=== PATIENT | female | born 1960 | race Caucasian/White ===

== ENCOUNTER 2016-11-05 08:00 | Outpatient (CLI) | payer MEDICARE, MEDICAID | END 2016-11-05 08:01 | disposition home or self-care (01) | DX: Z78.9 Other specified health status (principal); Z79.899 Other long term (current) drug therapy ==

== ENCOUNTER 2016-12-24 14:50 | Outpatient (CLI) | payer MEDICARE, MEDICAID ==
--- NOTE | 2016-12-24 16:41 | XRAY Report ---
TWO VIEW RIGHT CALCANEUS: 12/24/2016 CLINICAL INDICATION: Pain. FINDINGS: Frontal and lateral views of the right calcaneus demonstrate plantar and posterior calcane al spurring. There is no evidence of fracture. The joint spaces are unremarkable. IMPRESSION: MILD DEGENERATIVE CHANGES. NO EVIDENCE OF CALCANEAL FRACTURE. JOB #: [id number] EXT JOB #:[id number]
--- NOTE | 2016-12-24 16:58 | XRAY Report ---
THREE-VIEW RIGHT FOOT: 12/24/2016 CLINICAL INDICATION: Pain. FINDINGS: AP, lateral, oblique views of the right foot demonstrate mild osteoarthritic changes of th e first metatarsophalangeal joint and interphalangeal joints. There is no evidence of acute fracture or dislocation. No radiopaque foreign body is seen in the soft tissues. Small plantar and posterio r calcaneal spurring is noted. IMPRESSION: DEGENERATIVE CHANGES. NO EVIDENCE OF FRACTURE. JOB #: [id number] EXT JOB #:[id number]
== END 2016-12-24 14:51 | disposition home or self-care (01) ==
LOC: DI.N 14:50
PROVIDERS: ATTEND Nurse Practitioner Gerontology
DX: M19.071 Primary osteoarthritis, right ankle and foot (principal)

== ENCOUNTER 2017-01-01 16:36 | Outpatient (CLI) | payer MEDICARE, MEDICAID ==
--- NOTE | 2017-01-02 10:06 | MRI Report ---
EXAM: RIGHT ANKLE/HINDFOOT MRI WITHOUT CONTRAST EXAM DATE: 01/01/2017 05:43 PM. CLINICAL HISTORY: [place] a pop in the right heel 10 weeks ago. Heel pain. Ankle joint pain, foot joint pain, right. COMPARISON: Radiographs 12/24/2016. TECHNIQUE: Multiplanar, multisequence T1-weighted and fluid-sensitive sequences of the ankle/hindfoot without contrast. Other: None. FINDINGS: Bones and articular surfaces: Moderate plantar calcaneal enthesophyte formation. Small amount of asso ciated marrow edema. No ankle joint effusion. Trace amount of fluid at the dorsal margin of the kavitha avicular joint. Cartilage thinning and subchondral edema at the dorsal aspect of the navicular cuneif orm articulations. Small amount of subchondral edema and cartilage thinning at the dorsal aspect of t he second and fourth tarsometatarsal articulations. No fracture. No erosions. Musculotendinous structures: Prominent soft tissue thickening and small amount of intrasubstance feli a involving the central band of the plantar fascia. The Achilles tendon appears intact. Visualized an terior, posterior and posterolateral ankle tendons appear intact without evidence of significant tend inosis or tenosynovitis. No muscle edema, atrophy or fatty replacement within the [id number]. Ligaments: The anterior and posterior talofibular, calcaneofibular and deltoid ligaments appear intac t. IMPRESSION: 1. Pwwm-er-wpptzxrf plantar fasciitis involving the central band. Associated plantar calcaneal enthes ophyte with some associated marrow edema. There is some prominent low signal thickening of the proxim al central band. This may represent some scar tissue or fibromatosis-like thickening of the proximal plantar fascia. 2. 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 [facility] MUSCULOSKELETAL RADIOLOGY SECTION Referring Provider Line: [phone] SITE ID: [id number]
== END 2017-01-01 16:37 | disposition home or self-care (01) ==
LOC: DI 16:36
PROVIDERS: ATTEND Nurse Practitioner Gerontology
DX: M72.2 Plantar fascial fibromatosis (principal); M77.31 Calcaneal spur, right foot; M19.071 Primary osteoarthritis, right ankle and foot

== ENCOUNTER 2017-07-05 16:03 | Emergency (ER) | payer MEDICARE, MEDICAID ==
--- NOTE | 2017-07-05 17:34 | XRAY Preliminary Report ---
Exam: XR SHOULDER 3 VIEW LT IMPRESSION: 1. No fracture or dislocation of the left shoulder. 2. Mild degenerative arthritis of the glenohumeral and AC joint. 3. Rotator cuff calcific tendinosis evident. [facility] SITE ID: [id number]
--- NOTE | 2017-07-05 17:36 | XRAY Report ---
EXAM: LEFT SHOULDER RADIOGRAPHY EXAM DATE: 07/05/2017 05:16 PM. CLINICAL HISTORY: Pain swelling. COMPARISON: 03/11/2008. TECHNIQUE: 3 views. FINDINGS: Bones: No acute fracture line seen. No focal abnormal osseous lesions. Joints: Normal alignment of the glenohumeral and acromioclavicular joints. Mild joint space narrowing with osteophyte seen. Soft tissues: The visualized hemithorax is unremarkable. No soft tissue swelling. Soft tissue calcifi cation adjacent to the humeral tuberosity likely reflects rotator cuff calcification. IMPRESSION: 1. No fracture or dislocation of the left shoulder. 2. Mild degenerative arthritis of the glenohumeral and AC joint. 3. Rotator cuff calcific tendinosis evident. [facility] Referring Provider Line: [phone] SITE ID: [id number]
[2017-07-05] MEDS ORDERED: IBUPROFEN 600 MG TABLET PO STA (19:16)
[2017-07-05] MEDS ORDERED: METHOCARBAMOL 500 MG TABLET PO STA (19:16)
[2017-07-05] MEDS ORDERED: ACETAMINOPHEN 325 MG TABLET PO STA (19:16)
--- NOTE | 2017-07-05 19:19 | ED Physician Documentation ---
PD HPI UPPER EXT INJURY - Stated complaint Stated Complaint: L SHOULDER INJ - Chief complaint Chief Complaint: Ext Problem - History obtained from History obtained from: Patient - History of Present Illness Location: Left, Shoulder Type of injury: Twist (she was having some mild pain at shoulder after weight lifting earlier, and then took out garbage and threw it with a swinging motion into the dumpster and felt abrupt pain of the shoulder. Now pain with ROM.) Timing - onset: Today Timing - details: Abrupt onset Worsened by: Moving Associated symptoms: No: Weakness, Numbness, Swelling Contributing factors: No: Prior ortho surgery Similar symptoms before: No diagnosis (has had pains of the shoulder intermittently but not as badly as current process.) Review of Systems Constitutional: denies: Fever, Chills Nose: denies: Rhinorrhea / runny nose, Congestion Throat: denies: Sore throat Respiratory: denies: Cough GI: denies: Vomiting, Diarrhea Skin: denies: Rash, Lesions Neurologic: denies: Focal weakness, Numbness PD PAST MEDICAL HISTORY - Past Medical History Past Medical History: Yes Cardiovascular: None Respiratory: None Neuro: None Endocrine/Autoimmune: None Psych: None Musculoskeletal: Osteoarthritis, Chronic back pain - Past Surgical History 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: Breast reduction - Present Medications Home Medications: Ambulatory Orders Medication Instructions Recorded Confirmed HYDROcod/ACETAM 5/325 [[place] 5/325] 1 tab PO Q6H PRN #18 tablet 07/05/17 Methocarbamol [Robaxin] 500 mg PO Q6H PRN #25 tablet 07/05/17 Naproxen [Naprosyn] 500 mg PO BID PRN #20 tablet 07/05/17 - Allergies Allergies/Adverse Reactions: Allergies Allergy/AdvReac Type Severity Reaction Status Date / Time Penicillins Allergy Unknown Verified 07/05/17 16:11 - Social History Does the pt smoke?: No Smoking Status: Never smoker PD ED PE NORMAL - Vitals Vital signs reviewed: Yes - General General: Alert and oriented X 3, No acute distress, Well developed/nourished - Neck Neck: Supple, no meningeal sign, No bony TTP, No adenopathy - Derm Derm: Normal color, Warm and dry, No rash - Extremities Extremities: Other (tender left suprascapular and whole of shoulder (anterior and lateral) area without obvious deformity. Pain with any ROM and palpation) - Neuro Neuro: Alert and oriented X 3, No sensory deficit, Normal speech Results - Vitals Vitals: Vital Signs - 24 hr 07/05/17 07/05/17 07/05/17 16:08 18:11 19:29 Temperature 35.7 C L Heart Rate 73 72 75 Respiratory 17 17 18 Rate Blood Pressure 145/83 H 136/89 H 133/72 H O2 Saturation 98 100 98 Oxygen O2 Source Room air - Rads (name of study) left shoulder Radiology: Prelim report reviewed, EMP read contemporaneously PD MEDICAL DECISION MAKING - ED course Complexity details: considered differential (sounds like rotator cuff injury. Xray is okay with some calcific changes c/w prior/chroinc problem. She is so tender and painful that can't really get a good assessment of shoulder at this time. Will assume some partial tear of rotator cuff. ), d/w patient Departure - Departure Disposition: 01 Home, Self Care Clinical Impression: Injury of left rotator cuff Qualifiers: Encounter type: initial encounter Qualified Code(s): S46.002A - Unspecified injury of muscle(s) and tendon(s) of the rotator cuff of left shoulder, initial encounter Condition: Stable Record reviewed to determine appropriate education?: Yes Instructions: ED Torn Rotator Cuff Follow-Up: Elijah Sherman MD [Provider Admit Priv/Credential] - Nadja Torres ARNP [Primary Care Provider] - Prescriptions: HYDROcod/ACETAM 5/325 [[place] 5/325] 1 tab PO Q6H PRN #18 tablet PRN Reason: Pain Methocarbamol [Robaxin] 500 mg PO Q6H PRN #25 tablet PRN Reason: Spasms Naproxen [Naprosyn] 500 mg PO BID PRN #20 tablet PRN Reason: Pain Comments: Use a sling for the next couple of weeks. Be sure to have gentle range of motion of the shoulder 3 or 4 times a day so that the joint capsule does not freeze (get scar tissue to the ball of it). Use anti-inflammatory such as naproxen twice daily. Add Robaxin muscle relaxant as the shoulder or left and spasm some as well. Add Tylenol or hydrocodone if needed for pain. Call orthopedics tomorrow for an appointment in about a week. Once the initial worst pain of this is improved though be able to assess and see whether it seems torn or needs further treatment beyond the sling. Discharge Date/Time: 07/05/17 19:30
[2017-07-05] MEDS ORDERED: IBUPROFEN 600 MG TABLET PO ONE (19:29)
[2017-07-05] MEDS ORDERED: ACETAMINOPHEN 325 MG TABLET PO ONE (19:29)
[2017-07-05] MEDS ORDERED: METHOCARBAMOL 500 MG TABLET PO ONE (19:29)
[2017-07-05 19:30] VITALS: BP 133/72
== END 2017-07-05 19:30 | disposition home or self-care (01) ==
LOC: ED 16:03
DX: S46.002A Unspecified injury of muscle(s) and tendon(s) of the rotator cuff of left shoulder, initial encounter (principal); X50.9XXA Other and unspecified overexertion or strenuous movements or postures, initial encounter; Y93.89 Activity, other specified
CPT/HCPCS: 73030; 99283; A9270

== ENCOUNTER 2018-06-13 14:05 | Emergency (ER) | payer MEDICARE, MEDICAID ==
[2018-06-13 14:16] VITALS: BP 137/94
--- NOTE | 2018-06-13 15:20 | ED Physician Documentation ---
PD HPI UPPER EXT INJURY - Stated complaint Stated Complaint: L ARM INJURY - Chief complaint Chief Complaint: Ext Problem - History obtained from History obtained from: Patient - History of Present Illness Location: Left, Shoulder, Arm Type of injury: Twist (she was catching her grandson, who was jumping down from side of pool, and she felt onset of pain in left shoulder/upper arm. Pain persists with increase on ROM of arm. It has worsened the past few days, to where unable to move arm without pain.) Timing - onset: How many weeks ago (3) Timing - details: Abrupt onset, Still present (worse the past few days) Worsened by: Moving Associated symptoms: Swelling. No: Weakness, Numbness, Discolored Contributing factors: No: Prior ortho surgery Similar symptoms before: Has not had sx before Recently seen: Not recently seen Review of Systems Constitutional: denies: Fever, Chills Nose: denies: Rhinorrhea / runny nose, Congestion Throat: denies: Sore throat Cardiac: denies: Chest pain / pressure Respiratory: denies: Dyspnea, Cough Musculoskeletal: denies: Extremity swelling Neurologic: denies: Focal weakness, Numbness PD PAST MEDICAL HISTORY - Past Medical History Cardiovascular: None Respiratory: None Endocrine/Autoimmune: None Psych: None Musculoskeletal: Osteoarthritis, Chronic back pain - Past Surgical History 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 - Present Medications Home Medications: Ambulatory Orders Medication Instructions Recorded Confirmed HYDROcod/ACETAM 5/325 [[place] 5/325] 1 tab PO Q6H PRN #18 tablet 07/05/17 Methocarbamol [Robaxin] 500 mg PO Q6H PRN #25 tablet 07/05/17 Naproxen [Naprosyn] 500 mg PO BID PRN #20 tablet 07/05/17 Dexamethasone [Decadron] 4 mg PO DAILY #5 tablet 06/13/18 Hydrocodone/Acetaminophen [[place] 1 each PO Q6H PRN #20 tablet 06/13/18 5-325 Tablet] - Allergies Allergies/Adverse Reactions: Allergies Allergy/AdvReac Type Severity Reaction Status Date / Time Penicillins Allergy Unknown Verified 06/13/18 14:16 - Social History Does the pt smoke?: No Smoking Status: Never smoker PD ED PE NORMAL - Vitals Vital signs reviewed: Yes - General General: Alert and oriented X 3, Well developed/nourished - Derm Derm: Normal color, Warm and dry, No rash - Extremities Extremities: Other (holding left arm splinted to side, in sling from home. Tender with some swelling but no bruising at proximal humerus laterally. Pain with abduction, extension, and external rotation. No obvious laxity of joint with passive ROM. ) - Neuro Neuro: No motor deficit, No sensory deficit Results - Vitals Vitals: Oxygen O2 Source Room air - Rads (name of study) left humerus Radiology: Prelim report reviewed (calcific tendinosis; no fractures. ), EMP read contemporaneously PD MEDICAL DECISION MAKING - ED course Complexity details: reviewed results (no fractures. Ca tendonitis), considered differential (sounds likely to be a rotator cuff pain and now tear. ), d/w patient Departure - Departure Disposition: 01 Home, Self Care Clinical Impression: Left upper arm pain Rotator cuff injury Qualifiers: Encounter type: initial encounter Laterality: left Qualified Code(s): S46.002A - Unspecified injury of muscle(s) and tendon(s) of the rotator cuff of left shoulder, initial encounter Condition: Stable Record reviewed to determine appropriate education?: Yes Instructions: ED Torn Rotator Cuff Follow-Up: Nadja Torres ARNP [Primary Care Provider] - [facility] [Provider Group] Prescriptions: Dexamethasone [Decadron] 4 mg PO DAILY #5 tablet Hydrocodone/Acetaminophen [[place] 5-325 Tablet] 1 each PO Q6H PRN #20 tablet PRN Reason: Pain Comments: Use the sling much of the time to protect range of motion. However you do not want it to "freeze up" on you and so do some gentle range of motion with the arm hanging down or using her other arm to see support it to 3 times a day. Continue your meloxicam. Add Decadron steroid for inflammation. Use Tylenol or hydrocodone if needed for pain. Follow-up with orthopedics next week, call tomorrow for an appointment. This sounds like you have a tear of one of your rotator cuff muscles. Discharge Date/Time: 06/13/18 17:00
[2018-06-13] MEDS ORDERED: DEXAMETHASONE 10 MG/ML VIAL PO STA (15:38)
[2018-06-13] MEDS ORDERED: ACETAMINOPHEN 325 MG TABLET PO STA (15:38)
--- NOTE | 2018-06-13 16:29 | XRAY Report ---
Reason: left upper humerus pain for 3 weeks Procedure Date: 06/13/2018 Accession Number: [id number] / [id number] Procedure: XR - Humerus LT CPT Code: FULL RESULT: EXAM: LEFT HUMERUS RADIOGRAPHY EXAM DATE: 06/13/2018 04:10 PM. CLINICAL HISTORY: Left upper humerus pain for 3 weeks. COMPARISON: SHOULDER 3 VIEW LT 07/05/2017 4:56 PM. TECHNIQUE: 2 views. FINDINGS: Chronic appearing calcifications are seen superior and posterior to the humeral head. These were present on the prior exam. These can be seen with calcific tendinitis. No evidence for acute fracture. No dislocation. Chronic appearing calcifications seen distal to the medial epicondyle. IMPRESSION: Chronic appearing calcifications are seen superior and posterior to the humeral head. These were present on the prior exam. These can be seen with calcific tendinitis. No evidence for acute fracture. No dislocation. Chronic appearing calcifications seen distal to the medial epicondyle. [facility]
== END 2018-06-13 17:00 | disposition home or self-care (01) ==
LOC: ED 14:05
DX: S46.002A Unspecified injury of muscle(s) and tendon(s) of the rotator cuff of left shoulder, initial encounter (principal); X50.1XXA Overexertion from prolonged static or awkward postures, initial encounter
CPT/HCPCS: 73060; 99283; A9270

== ENCOUNTER 2018-06-28 15:00 | Outpatient (CLI) | payer MEDICARE, MEDICAID ==
--- NOTE | 2018-06-29 16:37 | MRI Report ---
Reason: PAIN IN LEFT SHOULDER Procedure Date: 06/28/2018 Accession Number: [id number] / [id number] Procedure: MRI - Shoulder LT W/O CPT Code: FULL RESULT: EXAM: LEFT SHOULDER MRI WITHOUT CONTRAST EXAM DATE: 06/28/2018 03:51 PM. CLINICAL HISTORY: Pain in left shoulder. COMPARISON: Radiographs 07/05/2017. TECHNIQUE: Multiplanar, multisequence T1-weighted and fluid-sensitive sequences of the shoulder without contrast. Other: None. FINDINGS: Evaluation mildly limited by patient motion and artifact despite repeat sequences. Acromioclavicular Region: The acromion is type II with mild anterior downsloping. Mild acromioclavicular degenerative change. The coracoacromial and coracoclavicular ligaments are intact. Mild subacromial/subdeltoid bursal fluid. Glenohumeral Region: No subluxation. No effusion or loose bodies. Diffuse shallow partial-thickness cartilage loss. The glenohumeral ligaments and joint capsule are unremarkable. Bone Marrow: No fracture or bone lesion. Reactive edema at the greater tuberosity. Labrum: Subtle fluid sensitive hyperintense signal at the undersurface of the superior labrum extending deep and anterior to the biceps anchor. Musculature/Rotator Cuff: Mild supraspinatus tendinopathy with lobulated 1.0 cm calcification at the distal aspect central fibers. Shallow bursal surface fraying adjacent to the site. Mild infraspinatus tendinopathy with multiple small calcifications at the central to posterior fibers measuring up to 0.6 cm transverse. Shallow bursal surface fraying adjacent to these sites. Teres minor tendon intact. Mild subscapularis tendinopathy. Mild fatty streaking throughout the musculature. No edema. Biceps Tendon: The long head of the biceps tendon and biceps jasmyne are intact. Other: The subcutaneous tissues are unremarkable. IMPRESSION: 1. Mild supraspinatus and infraspinatus calcific tendinopathy with bursal surface fraying. 2. Mild subscapularis tendinopathy. 3. Normal variant sulcus versus subtle undersurface tear superior labrum extending deep and anterior to the biceps anchor (SLAP tear). 4. Mild subacromial subdeltoid bursitis. 5. Mild anterior downsloping of the acromion may contribute to symptoms of impingement. [facility] MUSCULOSKELETAL RADIOLOGY SECTION
== END 2018-06-28 15:01 | disposition home or self-care (01) ==
LOC: DI 15:00
PROVIDERS: ATTEND Orthopaedic Surgery Sports Medicine
DX: M75.52 Bursitis of left shoulder (principal); M67.912 Unspecified disorder of synovium and tendon, left shoulder

== ENCOUNTER 2021-06-30 12:38 | Outpatient (CLI) | payer MEDICARE, MEDICAID ==
--- NOTE | 2021-06-30 16:17 | MRI Report ---
PROCEDURE: Cervical Spine W/O INDICATIONS: CERVICAL RADICULOPATHY TECHNIQUE: Noncontrast sagittal T1 spin echo and T2 fast spin echo, sagittal STIR, foraminal oblique sagittal T2 fast spin echo, and axial gradient echo or T2 fast spin echo through the cervical spine. COMPARISON: None. FINDINGS: Image quality: Excellent. Alignment and Curvature: There is normal bony alignment. Remote ACDF at C4-C7 Bone Marrow: Marrow demonstrates normal overall signal. Spinal Cord: Visualized spinal cord has normal size and signal. No cerebellar tonsillar herniation. Paraspinous Soft Tissues: No paravertebral masses. Prevertebral soft tissues are normal in thicknes s. C2-C3: Prominent bilateral facet arthropathy. No canal stenosis or foraminal stenosis. C3-C4: There is a mild right paracentral disc protrusion indenting on the ventral cord with associa mitchel prominent right uncovertebral joint hypertrophy. AP diameter of the canal is 8 mm. Severe right f oraminal narrowing with right foraminal C4 nerve root impingement. Mild to moderate left foraminal na rrowing. Prominent bilateral facet hypertrophy. C4-C5: Fused. Posterior osteophyte indents on the cord. AP diameter of the canal is 9.8 mm. Prominen t bilateral facet hypertrophy. Moderate left foraminal narrowing with mild flattening deformity on th e exiting left C5 nerve root. C5-C6: Fused. AP diameter of the canal is 8.0 mm. Facet hypertrophy. Moderate left foraminal narrowi ng with flattening deformity on the exiting left C6 nerve root. C6-C7: No canal stenosis. No significant foraminal stenosis. C7-T1: Normal in appearance. IMPRESSION: 1. Remote ACDF at C4-C7. 2. Multilevel facet arthropathy. 3. There is moderate canal stenosis at C3-C4, as well as at C5-C6. 4. Significant multilevel foraminal narrowing as described above. Reviewed by: French Velasquez MD on 06/30/2021 4:15 PM PST Approved by: French Velasquez MD on 06/30/2021 4:15 PM PST Station ID: [id number]
== END 2021-06-30 12:39 | disposition home or self-care (01) ==
LOC: DI 12:38
PROVIDERS: ATTEND Nurse Practitioner
DX: M47.22 Other spondylosis with radiculopathy, cervical region (principal); M50.11 Cervical disc disorder with radiculopathy, high cervical region; M48.02 Spinal stenosis, cervical region; Z98.1 Arthrodesis status

== ENCOUNTER 2021-08-06 13:26 | Outpatient (CLI) | payer MEDICARE, MEDICAID ==
--- NOTE | 2021-08-06 15:06 | XRAY Report ---
PROCEDURE: Ankle 3 View RT INDICATIONS: ANKLE JOINT PAIN, RIGHT TECHNIQUE: 3 views of the ankle were acquired. COMPARISON: None FINDINGS: Bones: No fractures or dislocations. Ankle mortise is normally aligned. No suspicious bony lesions . Mild periarticular osteophyte formation at the tibiotalar, talonavicular, naviculocuneiform joints . Soft tissues: No tibiotalar joint effusion. Achilles tendon appears normal. IMPRESSION: Osteoarthritis. No acute fracture. No osseous lesion. If symptoms and/or clinical suspic ion for pathology continue, further assessment with repeat plain films, or advanced imaging (e.g., CT , MRI, or bone scan) is recommended for further assessment. Reviewed by: Christian Schmid MD on 08/06/2021 3:05 PM PST Approved by: Christian Schmid MD on 08/06/2021 3:05 PM PST Station ID: [id number]
--- NOTE | 2021-08-06 16:08 | XRAY Report ---
PROCEDURE: Foot 3 View RT INDICATIONS: FOOT JOINT PAIN, RIGHT TECHNIQUE: 3 views of the foot were acquired. COMPARISON: None FINDINGS: Bones: No fractures or dislocations. No suspicious bony lesions. Soft tissues: No tibiotalar joint effusion. Achilles tendon appears normal. IMPRESSION: No acute fracture. No osseous lesion. If symptoms and/or clinical suspicion for pathology continue, f urther assessment with repeat plain films, or advanced imaging (e.g., CT, MRI, or bone scan) is recom mended for further assessment. Reviewed by: Christian Schmid MD on 08/06/2021 4:06 PM PST Approved by: Christian Schmid MD on 08/06/2021 4:06 PM PST Station ID: [id number]
== END 2021-08-06 13:27 | disposition home or self-care (01) ==
LOC: DI 13:26
PROVIDERS: ATTEND Nurse Practitioner
DX: M19.071 Primary osteoarthritis, right ankle and foot (principal); M79.671 Pain in right foot

== ENCOUNTER 2022-05-03 08:00 | Outpatient (CLI) | payer MEDICARE, MEDICAID ==
--- NOTE | 2022-05-03 15:47 | XRAY Report ---
PROCEDURE: Shoulder 3 View BILAT INDICATIONS: BILAT SHOULDER PAIN TECHNIQUE: 4 views of the shoulder were acquired. COMPARISON: None. FINDINGS: Bones: No fractures or dislocations. Moderate acromioclavicular joint and glenohumeral joint osteoa rthritic changes are noted bilaterally. No suspicious bony lesions. Visualized ribs appear intact. Soft tissues: Small calcifications adjacent to bilateral greater tuberosity are seen which may indica te hydroxyapatite deposition disease. IMPRESSION: 1. Moderate bilateral acromioclavicular joint and glenohumeral joint osteoarthritis. No fracture or d islocation. 2. Suggestion of calcific tendinitis involving bilateral distal rotator cuff tendons at their humeral head insertions. Reviewed by: Juvenal aMntilla MD on 05/03/2022 3:45 PM PDT Approved by: Juvenal Mantilla MD on 05/03/2022 3:45 PM PDT Station ID: [id number]
== END 2022-05-03 23:45 | disposition home or self-care (01) ==
LOC: DI.WOS 08:00
PROVIDERS: ATTEND Physician Assistant Surgical
DX: M19.012 Primary osteoarthritis, left shoulder (principal); M19.011 Primary osteoarthritis, right shoulder

== ENCOUNTER 2023-12-10 16:02 | Emergency (ER) | payer MEDICARE, MEDICAID ==
--- NOTE | 2023-12-10 16:24 | ED Physician Documentation ---
PD HPI UPPER EXT INJURY - Stated complaint Stated Complaint: LFT ARM INJURY - Chief complaint Chief Complaint: Trauma Ext - History obtained from History obtained from: Patient - History of Present Illness Location: Left, Wrist Type of injury: Fall Timing - onset: How many hours ago (1), Today Timing - details: Abrupt onset, Still present Review of Systems Skin: denies: Abrasion (s), Laceration (s) Neurologic: denies: Focal weakness, Numbness PD PAST MEDICAL HISTORY - Past Medical History Past Medical History: No Cardiovascular: None Respiratory: None Endocrine/Autoimmune: None Psych: None Musculoskeletal: Osteoarthritis, Chronic back pain - Past Surgical History 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 - Present Medications Home Medications: Ambulatory Orders Medication Instructions Recorded Confirmed Albuterol Sulfate [Proair 1 - 2 puffs IH Q6HR PRN 12/10/23 12/10/23 Digihaler] HYDROcod/ACETAM 5/325 [[place] 5/325] 1 ea PO Q6H PRN #18 tablet 12/10/23 Meloxicam [Mobic] 7.5 mg PO BID 10 Days #20 tablet 12/10/23 - Allergies Allergies/Adverse Reactions: Allergies Allergy/AdvReac Type Severity Reaction Status Date / Time Penicillins Allergy Unknown Verified 12/10/23 16:13 - Social History Does the pt smoke?: No Smoking Status: Never smoker Does the pt drink ETOH?: No Does the pt have substance abuse?: No PD ED PE NORMAL - Vitals Vital signs reviewed: Yes - General General: Alert and oriented X 3, Well developed/nourished - Neck Neck: Supple, no meningeal sign, No bony TTP - Derm Derm: Normal color, Warm and dry - Extremities Extremities: Other (left wrist tender at distal radial area. Not tneder in snuffbox. No noted deformity other than swelling. ) - Neuro Neuro: Alert and oriented X 3, No motor deficit, No sensory deficit, Normal speech Results - Vitals Vitals: Vital Signs - 24 hr 12/10/23 12/10/23 16:13 17:54 Temperature 36.5 C Heart Rate 90 73 Respiratory 20 18 Rate Blood Pressure 150/90 H 178/87 H O2 Saturation 100 98 Oxygen O2 Source Room air - Rads (name of study) left wrist Relevant Findings:: Prelim report reviewed, EMP independent interpretation of test (distal radial fracture with loss of height more to ulnar side. joint space involved on that side. Not angulated, no reduction needed at this time. ) Procedures - Splint (location) - Minor left wrist Splint applied by: Tech Type of splint: Fiberglass, Ulnar gutter Other: Patient tolerated well, No complications, Neurovascular intact, Sling provided PD Medical Decision Making - ED course Complexity details: reviewed results (xray wrist with distal radial fracture. ), considered differential (accidental fall with FOOSH left side, pain at wrist. Xray reveals distal radial impaction fracture. Pt in paina nd given IM meds of Toradol and Dilaudid. Splint by transport manager.), d/w patient Departure - Departure Disposition: 01 Home, Self Care Clinical Impression: Accidental fall Qualifiers: Encounter type: initial encounter Qualified Code(s): W19.XXXA - Unspecified fall, initial encounter Distal radial fracture Qualifiers: Encounter type: initial encounter Fracture type: closed Fracture morphology: unspecified fracture morphology Laterality: left Qualified Code(s): S52.502A - Unspecified fracture of the lower end of left radius, initial encounter for closed fracture Condition: Stable Record reviewed to determine appropriate education?: Yes Instructions: ED Fx Wrist General Follow-Up: Rebeca Fox ARNP [Primary Care Provider] - [facility] [Provider Group] Prescriptions: Meloxicam [Mobic] 7.5 mg PO BID 10 Days #20 tablet HYDROcod/ACETAM 5/325 [[place] 5/325] 1 ea PO Q6H PRN #18 tablet PRN Reason: Pain Comments: You have a broken wrist but fortunately it is not angulated or displaced. However it does appear somewhat impacted (pushed down). The joint space still looks to have the appropriate shape and most likely this will heal if kept in the position. However I would defer to the orthopedist for their clinical judgment on follow- up to discuss with you the full treatment options. At this point it does not need to be reduced or improved upon at this time. We did place it in a splint. This is to allow or accommodate for swelling that is likely to occur over the next several days. Typically will give it time to swelling on swell with the splint and then follow-up with orthopedics later this coming week. At that point they can lizbeth- ray and assess the treatment options. They can place it in a cast at that point which is more durable. He will be in a cast or splint likely for about 6 weeks total. Ice elevate and rest your wrist often over the next couple of days to minimize swelling. We provided a sling for you as well. A combination of anti-inflammatories and Tylenol or pain medicine would be appropriate. I wrote prescriptions for you and sent them to your preferred pharmacy. Recheck if significant pain uncontrolled by your medications or if you notice any discoloration or significant numbness or other concerns with your fingers. You likely will develop some swelling in the fingers. I am prescribing a short course of narcotic pain medication for you. These are potentially dangerous and addictive medications that should be used carefully. These medications may constipate you. Take an axsy-qvk-etozvgn stool softener such as docusate twice daily with plenty of water while taking these medications. If you go 24 hours without a bowel movement, take oufc-nhh-toklqji MiraLAX, per package instructions. Do not drink or drive while taking these medications. If you received narcotic or sedating medications while in the emergency department do not drive for 24 hours. Store this medication in a safe, secure place and out of reach of children. It is a violation of federal law to give or sell this medication to another person or to use in a manner other than prescribed. The ED will not refill narcotic prescriptions, including prescriptions lost or stolen. You can dispose of unwanted medications at the [facility]'s office or at several pharmacies such as [facility]. Forms: PCP List Discharge Date/Time: 12/10/23 18:08
[2023-12-10] MEDS: KETOROLAC 30 MG/ML VIAL IM STA (16:40)
[2023-12-10] MEDS: HYDROmorphone 1 MG/ML CARPUJECT IM STA (16:41)
--- NOTE | 2023-12-10 17:02 | XRAY Report ---
PROCEDURE: Wrist 3+V LT INDICATIONS: pain TECHNIQUE: 3 views of the wrist were acquired. COMPARISON: None. FINDINGS: Bones: Longitudinal lucency along the ulnar aspect of the distal radius extending to the radiocarpal joint concerning for nondisplaced fracture. Corticated osseous fragment adjacent to the ulnar styloi d consistent with remote fracture. Mild first carpometacarpal/triscaphe osteoarthritic changes with o steophytes and joint space narrowing. Soft tissues: No suspicious soft tissue calcifications or masses. IMPRESSION: Nondisplaced distal radial fracture Reviewed by: Trevor Ambriz MD on 12/10/2023 4:00 PM [facility] Approved by: Trevor Ambriz MD on 12/10/2023 4:00 PM [facility] Station ID: [id number]
[2023-12-10] MEDS: HYDROcod/ACET 5/325 Prepack 4 PO STA (17:47)
[2023-12-10 18:04] VITALS: BP 178/87; O2SAT 98
== END 2023-12-10 18:08 | disposition home or self-care (01) ==
LOC: ED 16:02
DX: S52.502A Unspecified fracture of the lower end of left radius, initial encounter for closed fracture (principal); W18.30XA Fall on same level, unspecified, initial encounter
CPT/HCPCS: 29125; 73110; 96372; 99283; 99284; J1170

== ENCOUNTER 2024-01-16 09:55 | Outpatient (CLI) | payer MEDICARE, MEDICAID ==
--- NOTE | 2024-01-16 11:06 | XRAY Report ---
PROCEDURE: Wrist 3+V BL INDICATIONS: BILATERAL COLLES FRACTURE TECHNIQUE: 4 views of the bilateral wrists were acquired. COMPARISON: 12/10/2023 FINDINGS: Bones: Healing left distal radial fracture with callus formation, stable alignment compared to prior . No definite fracture seen on the right. No suspicious bony lesions. Soft tissues: No suspicious soft tissue calcifications or masses. IMPRESSION: Healing left distal radial fracture. No definite fracture on the right side is seen. Reviewed by: Fazal Demarco MD on 01/16/2024 11:05 AM PDT Approved by: Fazal Demarco MD on 01/16/2024 11:05 AM PDT Station ID: [id number]
== END 2024-01-16 09:56 | disposition home or self-care (01) ==
LOC: DI 09:55
PROVIDERS: ATTEND Orthopaedic Surgery
DX: S52.532D Colles' fracture of left radius, subsequent encounter for closed fracture with routine healing (principal)

== ENCOUNTER 2024-02-20 10:01 | Outpatient (CLI) | payer MEDICARE, MEDICAID ==
--- NOTE | 2024-02-20 19:20 | XRAY Report ---
PROCEDURE: Wrist 3+V RT INDICATIONS: COLLES FRACTURE OF RIGHT RADIUS TECHNIQUE: 3 views of the wrist were acquired. COMPARISON: 01/16/2024 FINDINGS: Bones: No fractures or dislocations. No suspicious bony lesions. Soft tissues: No suspicious soft tissue calcifications or masses. IMPRESSION: No acute or subacute fracture. Reviewed by: Candy Mckinley MD on 02/20/2024 7:19 PM PDT Approved by: Candy Mckinley MD on 02/20/2024 7:19 PM PDT Station ID: [id number]
--- NOTE | 2024-02-20 19:21 | XRAY Report ---
PROCEDURE: Wrist 3+V LT INDICATIONS: COLLES FRACTURE OF LEFT RADIUS TECHNIQUE: 3 views of the wrist were acquired. COMPARISON: 01/16/2024 FINDINGS: Bones: Deformity of slightly comminuted and impacted distal radius fracture. Distal radioulnar joint and radiocarpal alignment remains normal. Soft tissues: No suspicious soft tissue calcifications or masses. IMPRESSION: Ongoing healing of left distal radius fracture. Reviewed by: Candy Mckinley MD on 02/20/2024 7:20 PM PDT Approved by: Candy Mckinley MD on 02/20/2024 7:20 PM PDT Station ID: [id number]
--- NOTE | 2024-02-20 19:23 | XRAY Report ---
PROCEDURE: Hand 3+V RT INDICATIONS: COLLES FRACTURE OF RIGHT RADIUS TECHNIQUE: 3 views of the hand(s) acquired. COMPARISON: None. FINDINGS: Bones: No fractures or dislocations. No suspicious bony lesions. Chronic appearing, flattening of the second and third metacarpal heads. There is mild marginal spurring of the proximal phalanges. Mi ld marginal spurring of the DIP joints 2 through 5. Soft tissues: No suspicious soft tissue calcifications or masses. IMPRESSION: Degenerative or remote posttraumatic flattening deformities of the second and third metacarpal heads. Reviewed by: Candy Mckinley MD on 02/20/2024 7:22 PM PDT Approved by: Candy Mckinley MD on 02/20/2024 7:22 PM PDT Station ID: [id number]
--- NOTE | 2024-02-20 19:24 | XRAY Report ---
PROCEDURE: Hand 3+V LT INDICATIONS: COLLES FRACTURE OF LEFT RADIUS TECHNIQUE: 3 views of the hand(s) acquired. COMPARISON: None. FINDINGS: Bones: Healing distal radius fracture, known. No acute fractures or malalignment of the hand. Mild o steoarthritic spurring, subcortical cystic changes, and slight joint space loss throughout, predomina ntly in the IP joints. Soft tissues: No suspicious soft tissue calcifications or masses. IMPRESSION: Osteoarthritic changes throughout the left hand. Healing comminuted distal radius fracture. Reviewed by: Candy Mckinley MD on 02/20/2024 7:23 PM PDT Approved by: Candy Mckinley MD on 02/20/2024 7:23 PM PDT Station ID: [id number]
== END 2024-02-20 10:02 | disposition home or self-care (01) ==
LOC: DI 10:01
PROVIDERS: ATTEND Physician Assistant Surgical
DX: S52.532D Colles' fracture of left radius, subsequent encounter for closed fracture with routine healing (principal); M19.041 Primary osteoarthritis, right hand; M21.831 Other specified acquired deformities of right forearm; M19.042 Primary osteoarthritis, left hand

== ENCOUNTER 2024-02-23 08:00 | Outpatient (CLI) | payer MEDICARE, MEDICAID | END 2024-02-23 23:59 | disposition home or self-care (01) | LOC: LAB.N 08:00 | PROVIDERS: ATTEND Physician Assistant | DX: J06.9 Acute upper respiratory infection, unspecified (principal) ==